=== PATIENT | female | born 1970 | race Caucasian/White ===

== ENCOUNTER → 2018-01-09 07:51 | Outpatient (CLI) | payer OTHER, SELFPAY ==
[2018-01-18 12:06] LABS: HPV Reflexed? NOT INDICATED
== END ==
PROVIDERS: Family Provider Internal Medicine; PCP Internal Medicine; Visit Provider Obstetrics & Gynecology
DX: Z12.4 Encounter for screening for malignant neoplasm of cervix (principal)
CPT/HCPCS: 88175; G0145

== ENCOUNTER → 2018-01-28 11:04 | Outpatient (CLI) | payer OTHER, SELFPAY ==
--- NOTE | 2018-01-28 11:07 | BI_ITS ---
MAMMOGRAPHY - BILATERAL SCREENING REASON FOR EXAM: Female, 48 years old. Routine annual screening examination. PERTINENT HISTORY: Non-contributory. TECHNIQUE: Digital bilateral breast roldan (3D mammographic acquisition) in the CC and MLO projections. 2-D mediolateral oblique (MLO) and craniocaudad (CC) views of both breasts were obtained. CAD: Full Field Digital Mammography with Computer Added Detection was performed. COMPARISON: Comparison is made with prior examination dated December 22, 2016 and December 22, 2015. FINDINGS: Breast Composition: There are scattered areas of fibroglandular density. There are no dominant masses or suspicious calcifications. Stable appearance of the bilateral axillary lymph nodes. No other significant abnormalities are identified. There has been no significant change since the prior study. BI/SCREENING MAMM (CAD), BILAT IMPRESSION: Stable bilateral screening mammogram. Yearly follow-up mammogram recommended. (A) ASSESSMENT CATEGORY: BIRADS Category 2: Benign. A letter regarding these results will be sent to the patient by the facility within 30 days. Approximately 10% of breast cancers are not detected by mammography. A normal mammogram should not delay biopsy of a clinically suspicious abnormality. [id number] Electronically Signed: Mark Vidal MD at 14:22 EDT Tel [phone], Service support ,
== END ==
PROVIDERS: Family Provider Internal Medicine; PCP Internal Medicine; Visit Provider Obstetrics & Gynecology
DX: Z12.31 Encounter for screening mammogram for malignant neoplasm of breast (principal)
CPT/HCPCS: 77063; 77067

== ENCOUNTER → 2019-02-19 16:28 | Outpatient (CLI) | payer OTHER, SELFPAY ==
[2018-12-11 15:11] VITALS: BMI 34.4
--- NOTE | 2019-02-19 16:30 | BI_ITS ---
MAMMOGRAPHY - BILATERAL SCREENING REASON FOR EXAM: Female, 49 years old. Routine annual screening examination. PERTINENT HISTORY: Non-contributory. TECHNIQUE: Digital bilateral breast randall (3D mammographic acquisition) in the CC and MLO projections. 2-D mediolateral oblique (MLO) and craniocaudad (CC) views of both breasts were obtained. CAD: Full Field Digital Mammography with Computer Added Detection was performed. COMPARISON: Comparison is made with prior study dated January 28, 2018 and December 22, 2016. FINDINGS: Breast Composition: There are scattered areas of fibroglandular density. There are no dominant masses or suspicious calcifications. Stable appearance of the bilateral benign-appearing axillary lymph nodes. No other significant abnormalities are identified. There has been no significant change since the prior study. BI/SCREEN MAMM (CAD) W/RANADLL BILAT IMPRESSION: Stable bilateral screening mammogram. Yearly follow-up mammogram recommended. (A) ASSESSMENT CATEGORY: BIRADS Category 2: Benign. A letter regarding these results will be sent to the patient by the facility within 30 days. Approximately 10% of breast cancers are not detected by mammography. A normal mammogram should not delay biopsy of a clinically suspicious abnormality. [id number] Electronically Signed: Mark Vidal, at 8:48 EDT , Service support ,
== END ==
PROVIDERS: Family Provider Internal Medicine; PCP Internal Medicine; Referring Provider Obstetrics & Gynecology; Visit Provider Obstetrics & Gynecology
DX: Z12.31 Encounter for screening mammogram for malignant neoplasm of breast (principal)
CPT/HCPCS: 77063; 77067

== ENCOUNTER → 2019-08-13 14:59 | Outpatient (CLI) | payer OTHER, SELFPAY ==
[2018-12-11 15:11] VITALS: BMI 34.4
--- NOTE | 2019-08-13 15:05 | RAD_ITS ---
STUDY: X-RAY - RIGHT HAND REASON FOR EXAM: Female, 49 years old. BILATERAL HAND SWELLING AND PAIN, SWELLING PRIMARILY AROUND THE PIP JOINTS TECHNIQUE: 3 view(s) of the hand. COMPARISON: None. FINDINGS: Normal radiocarpal articulation. Normal distal radioulnar joint. Normal visualized carpal bones. Normal carpal articulations Normal carpometacarpal articulation of the thumb. Normal second through fifth carpometacarpal joints. Normal metacarpi. Normal metacarpophalangeal joint of the thumb. Normal interphalangeal joint of the thumb. Normal proximal and distal phalanges of the thumb. Normal metacarpophalangeal joints of the second through fifth fingers. Normal proximal and distal interphalangeal joints of the second through fifth fingers. Normal phalanges of the second through fifth fingers. The soft tissue structures are unremarkable. RAD/Hand Min 3 Views IMPRESSION: Normal x-ray examination of the hand. Electronically Signed: Kandi Christiansen MD at 23:58 EST Tel , Service support ,
--- NOTE | 2019-08-13 15:06 | RAD_ITS ---
STUDY: X-RAY - LEFT HAND REASON FOR EXAM: Female, 49 years old. BILATERAL HAND SWELLING AND PAIN, SWELLING PRIMARILY AROUND THE PIP JOINTS TECHNIQUE: 3 view(s) of the hand. COMPARISON: None. FINDINGS: Normal radiocarpal articulation. Normal distal radioulnar joint. Normal visualized carpal bones. Normal carpal articulations Normal carpometacarpal articulation of the thumb. Normal second through fifth carpometacarpal joints. Normal metacarpi. Normal metacarpophalangeal joint of the thumb. Normal interphalangeal joint of the thumb. Normal proximal and distal phalanges of the thumb. Normal metacarpophalangeal joints of the second through fifth fingers. Normal proximal and distal interphalangeal joints of the second through fifth fingers. Normal phalanges of the second through fifth fingers. The soft tissue structures are unremarkable. RAD/Hand Min 3 Views IMPRESSION: Normal x-ray examination of the hand. Electronically Signed: Kandi Christiansen MD at 23:57 EST Tel , Service support ,
== END ==
PROVIDERS: PCP Internal Medicine; Referring Provider Internal Medicine; Visit Provider Internal Medicine
DX: M79.641 Pain in right hand (principal); M79.642 Pain in left hand
CPT/HCPCS: 73130

== ENCOUNTER → 2020-02-04 | Outpatient (CLI) | payer OTHER, SELFPAY ==
[2018-12-11 15:11] VITALS: BMI 34.4
[2020-02-11 16:57] LABS: HPV Reflexed? NOT INDICATED
== END | disposition home or self-care (01) ==
LOC: LABSPEC 13:50
PROVIDERS: PCP Internal Medicine; Visit Provider Obstetrics & Gynecology
DX: Z12.4 Encounter for screening for malignant neoplasm of cervix (principal)
CPT/HCPCS: 88175; G0145

== ENCOUNTER → 2020-03-01 | Outpatient (CLI) | payer OTHER, SELFPAY ==
[2018-12-11 15:11] VITALS: BMI 34.4
--- NOTE | 2020-03-01 12:16 | BI_ITS ---
MAMMOGRAPHY - BILATERAL SCREENING 3-D TOMOSYNTHESIS REASON FOR EXAM: Female, 50 years old. Routine screening PERTINENT HISTORY: NO FM HX , GAIN 10#. TECHNIQUE: 2-D mammograms and 3-D Tomosynthesis of the breast (s) were performed. CAD was performed. COMPARISON: 02/19/2019 FINDINGS: The breast composition is composed of scattered fibroglandular density. Scattered benign calcifications are seen. No dense spiculated masses or suspicious microcalcifications are identified. No architectural distortion is identified. There is no skin thickening or retraction. There has been no significant change since the prior study. BI/SCREEN MAMM (CAD) W/RANDALL BILAT IMPRESSION: No mammographic signs of malignancy. Routine yearly mammograms recommended. ASSESSMENT CATEGORY: BIRADS Category 1: Negative. A letter regarding these results will be sent to the patient by the facility within 30 days. FOLLOW UP RECOMMENDATION: Yearly follow up mammogram recommended. (A) Approximately 10% of breast cancers are not detected by mammography. A normal mammogram should not delay biopsy of a clinically suspicious abnormality. Electronically Signed: Chad Zheng MD at 13:32 EDT , Service support ,
== END | disposition home or self-care (01) ==
LOC: OPBI 12:15
PROVIDERS: PCP Internal Medicine; Referring Provider Obstetrics & Gynecology; Visit Provider Obstetrics & Gynecology
DX: Z12.31 Encounter for screening mammogram for malignant neoplasm of breast (principal)
CPT/HCPCS: 77063; 77067

== ENCOUNTER → 2020-11-09 10:46 | Outpatient (CLI) | payer OTHER, SELFPAY ==
[2018-12-11 15:11] VITALS: BMI 34.4
--- NOTE | 2020-11-09 10:55 | ECHOD_ITS ---
Reason For Study: Bicuspid AV Procedure This was a 2D Doppler, Color Flow transthoracic echocardiogram. The exam was of adequate technical quality. Exam performed in department. Left Ventricle Normal LV size. Left ventricular systolic function is normal. The estimated ejection fraction is 65 %. Diastolic function is indeterminate. No regional wall motion abnormalities noted. Right Ventricle Normal RV size. Normal systolic function. Atria Normal left atrium. Normal right atrium. No doppler evidence for ASD. Mitral Valve There is no mitral annular calcification. Mild diffuse mitral valve thickening. Trivial mitral valve insufficiency. Tricuspid Valve Normal tricuspid valve. Mild tricuspid valve insufficiency. Right ventricular systolic pressure estimated to be 20 mmHg. Aortic Valve Bicuspid aortic valve. Moderate focal aortic valve calcification. Mild aortic stenosis. Pulmonic Valve The pulmonic valve is not well visualized. Trivial pulmonic valve insufficiency. Great Vessels Normal sized aortic root. Pericardium/Pleural No pericardial effusion. MMode/2D Measurements & Calculations LVIDd: 3.9 cm IVSd: 1.0 cm LVOT diam: 2.0 cm LVIDs: 2.4 cm LVPWd: 0.94 cm LVOT area: 3.1 cm2 RVDd: 2.9 cm FS: 39.5 % Ao root diam: 3.5 cm LAV(MOD-bp): 33.8 ml LVAd ap4: 26.8 cm2 LAV(MOD-bp) Indexed: 17.6 ml/m2 LVLd ap4: 8.0 cm LAV(MOD-sp2): 36.8 ml EDV(MOD-sp4): 73.0 ml LAV(MOD-sp4): 30.9 ml EDV(sp4-el): 76.3 ml LVAs ap4: 14.8 cm2 LVLs ap4: 6.6 cm ESV(MOD-sp4): 29.3 ml ESV(sp4-el): 28.3 ml EF(MOD-sp4): 59.9 % EF(sp4-el): 62.9 % LVAd ap2: 23.7 cm2 SV(MOD-sp4): 43.7 ml SV(MOD-sp2): 38.7 ml LVLd ap2: 7.0 cm EDV(MOD-sp2): 67.1 ml EDV(sp2-el): 68.2 ml LVAs ap2: 14.5 cm2 LVLs ap2: 6.3 cm ESV(MOD-sp2): 28.5 ml ESV(sp2-el): 28.6 ml EF(MOD-sp2): 57.6 % SV(sp4-el): 48.0 ml LA dimension(2D): 3.4 cm LA A4 area: 13.8 cm2 RA A4 area: 8.9 cm2 Doppler Measurements & Calculations MV E max juan: 75.6 cm/sec Lat Peak E' Juan: 7.0 cm/sec Med Peak E' Juan: 4.6 cm/sec MV A max juan: 97.1 cm/sec E/E' lat: 10.8 E/E' med: 16.5 MV E/A: 0.78 Ao V2 max: 213.8 cm/sec LV V1 max: 102.2 cm/sec SV(LVOT): 69.0 ml Ao max P.3 mmHg LV V1 max P.2 mmHg Ao V2 mean: 148.8 cm/sec LV V1 mean P.3 mmHg Ao mean P.9 mmHg LV V1 mean: 71.9 cm/sec Ao V2 VTI: 43.4 cm LV V1 VTI: 22.4 cm RITESH(I,D): 1.6 cm2 RITESH(V,D): 1.5 cm2 PA V2 max: 81.8 cm/sec TR max juan: 206.9 cm/sec TR max P.2 mmHg ECHO/Echo Complete Interpretation Summary Left ventricular systolic function is normal. The estimated ejection fraction is 65 %. Mild diffuse mitral valve thickening. Trivial mitral valve insufficiency. Mild tricuspid valve insufficiency. Bicuspid aortic valve. Mild aortic stenosis. Trivial pulmonic valve insufficiency. Right ventricular systolic pressure estimated to be 20 mmHg. Diastolic function is indeterminate. Ordering Physician: Ant Camp Referring Physician: Jessica Sher M.D. Performed By: Lyndsay Andrews RDCS
== END ==
PROVIDERS: Family Provider Internal Medicine; PCP Internal Medicine; Referring Provider Internal Medicine Cardiovascular Disease; Visit Provider Internal Medicine Cardiovascular Disease
DX: Q23.1 Congenital insufficiency of aortic valve (principal)
CPT/HCPCS: 93306

== ENCOUNTER → 2021-04-04 12:28 | Outpatient (CLI) | payer OTHER, SELFPAY ==
--- NOTE | 2021-04-04 12:31 | BI_ITS ---
MAMMOGRAPHY - BILATERAL SCREENING REASON FOR EXAM: Female, 51 years old. Routine annual screening examination. PERTINENT HISTORY: Non-contributory. TECHNIQUE: Digital bilateral breast randall (3D mammographic acquisition) in the CC and MLO projections. 2-D mediolateral oblique (MLO) and craniocaudad (CC) views of both breasts were obtained. CAD: Full Field Digital Mammography with Computer Added Detection was performed. COMPARISON: Comparison is made with prior study dated 03/01/2020 and 02/19/2019. FINDINGS: Breast Composition: There are scattered areas of fibroglandular density. There are no dominant masses or suspicious calcifications. No other significant abnormalities are identified. There has been no significant change since the prior study. BI/SCRN MAMM (CAD)W/RANDALL BILAT IMPRESSION: Stable bilateral screening mammogram. Yearly follow-up mammogram recommended. (A) ASSESSMENT CATEGORY: BIRADS Category 1: Negative. A letter regarding these results will be sent to the patient by the facility within 30 days. Approximately 10% of breast cancers are not detected by mammography. A normal mammogram should not delay biopsy of a clinically suspicious abnormality. [id number] Electronically Signed: Mark Vidal MD at 13:29 EDT , Service support ,
== END ==
PROVIDERS: PCP Internal Medicine; Referring Provider Obstetrics & Gynecology; Visit Provider Obstetrics & Gynecology
DX: Z12.31 Encounter for screening mammogram for malignant neoplasm of breast (principal)
CPT/HCPCS: 77063; 77067

== ENCOUNTER 2021-07-23 10:48 | Outpatient (CLI) | payer OTHER, SELFPAY ==
[2021-07-23 10:55] VITALS: BP 145/91; PULSE 94; RESP 16; TEMP 36.3; O2SAT 99; BMI 36.9
[2021-07-23] MEDS: 0.9% Saline Lock 10 ML Syringe IV (11:11)
[2021-07-23 11:33] VITALS: BP 121/83; PULSE 70; RESP 16; TEMP 36.5; O2SAT 99
[2021-07-23 12:41] VITALS: BP 123/87; PULSE 71; RESP 16; TEMP 37.1; O2SAT 98
== END 2021-07-23 23:59 | disposition home or self-care (01) ==
LOC: MS3OUT 10:49 → MS3 10:49
PROVIDERS: PCP Internal Medicine; Referring Provider Nurse Practitioner Acute Care; Visit Provider Nurse Practitioner Acute Care
DX: U07.1 COVID-19 (principal)
CPT/HCPCS: J7050; M0243; A4216; Q0244

== ENCOUNTER → 2022-04-20 | Outpatient (CLI) | payer OTHER, SELFPAY ==
[2022-04-28 19:07] LABS: Clam <0.10 kU/L (Class 0); Codfish <0.10 kU/L (Class 0); Corn <0.10 kU/L (Class 0); Egg, White 0.19 kU/L (Class 0/I); Milk (Cow) <0.10 kU/L (Class 0); Peanut <0.10 kU/L (Class 0); SCALLOP <0.10 kU/L (Class 0); Shrimp <0.10 kU/L (Class 0); Soybean <0.10 kU/L (Class 0); Walnut, (Food) <0.10 kU/L (Class 0); Wheat <0.10 kU/L (Class 0)
[2022-04-29 11:45] LABS: SESAME SEED <0.10 kU/L (Class 0)
== END | disposition home or self-care (01) ==
LOC: LAB 15:54
PROVIDERS: PCP Internal Medicine; Visit Provider Otolaryngology
DX: T78.40XA Allergy, unspecified, initial encounter (principal)
CPT/HCPCS: 36415; 86003

== ENCOUNTER → 2022-05-23 | Outpatient (CLI) | payer OTHER, SELFPAY ==
--- NOTE | 2022-05-23 15:19 | BI_ITS ---
MAMMOGRAPHY - BILATERAL SCREENING REASON FOR EXAM: Female, 52 years old. Routine annual screening examination. PERTINENT HISTORY: Non-contributory. TECHNIQUE: Digital bilateral breast randall (3D mammographic acquisition) in the CC and MLO projections. 2-D mediolateral oblique (MLO) and craniocaudad (CC) views of both breasts were obtained. CAD: Full Field Digital Mammography with Computer Added Detection was performed. COMPARISON: Comparison is made with prior study dated 04/04/2021 and 03/01/2020. FINDINGS: Breast Composition: There are scattered areas of fibroglandular density. There are no dominant masses or suspicious calcifications. Stable small benign-appearing bilateral axillary lymph nodes. No other significant abnormalities are identified. There has been no significant change since the prior study. BI/SCRN MAMM (CAD)W/RANDALL BILAT IMPRESSION: Stable bilateral screening mammogram. Yearly follow-up mammogram recommended. (A) ASSESSMENT CATEGORY: BIRADS Category 2: Benign. A letter regarding these results will be sent to the patient by the facility within 30 days. Approximately 10% of breast cancers are not detected by mammography. A normal mammogram should not delay biopsy of a clinically suspicious abnormality. [id number] Electronically Signed: Mark Vidal MD at 8:43 EST ,
== END | disposition home or self-care (01) ==
LOC: OPBI 15:18
PROVIDERS: PCP Internal Medicine; Referring Provider Student in an Organized Health Care Education/Training Program; Visit Provider Student in an Organized Health Care Education/Training Program
DX: Z12.31 Encounter for screening mammogram for malignant neoplasm of breast (principal)
CPT/HCPCS: 77063; 77067

== ENCOUNTER → 2022-06-19 | Outpatient (CLI) | payer OTHER, SELFPAY ==
--- NOTE | 2022-06-19 16:21 | RAD_ITS ---
STUDY: X-RAY - RIGHT KNEE REASON FOR EXAM: Female, 52 years old. Right knee pain for several weeks TECHNIQUE: 3 view(s) of the knee. COMPARISON: None. FINDINGS: Normal visualized distal femur. Irregularity on the posterior aspect of the tibial epiphysis. Normal proximal tibiofibular articulation. Normal medial femorotibial compartment. Normal lateral femorotibial compartment. Normal patellofemoral articulation. There is a soft tissue prominence in the suprapatellar region suggesting a small volume joint effusion. The soft tissue structures are unremarkable. RAD/Knee 3 Views IMPRESSION: Posterior tibial epiphysis regularity is suspicious for avulsion injury. There may be a tiny suprapatellar knee joint effusion. Electronically Signed: Ant Dawson MD at 16:37 EST ,
== END | disposition home or self-care (01) ==
LOC: MTRAD 16:20
PROVIDERS: PCP Internal Medicine; Referring Provider Physician Assistant; Visit Provider Physician Assistant
DX: M25.561 Pain in right knee (principal)
CPT/HCPCS: 73562

== ENCOUNTER → 2022-07-14 | Outpatient (CLI) | payer OTHER, SELFPAY ==
--- NOTE | 2022-07-14 16:45 | MRI_ITS ---
EXAM: MR RIGHT LOWER EXTREMITY WITHOUT INTRAVENOUS CONTRAST, KNEE CLINICAL INDICATION: pain, rule out MM tear TECHNIQUE: Multiplanar and multisequence MR images of the right knee without intravenous contrast. This report was created using thePlatform report Fontacto technology. COMPARISON: X-ray 06/19/2022. FINDINGS: BONES/JOINTS: Trace marrow edema in the anteromedial femur consistent with early degenerative changes. No fracture. No synovial hypertrophy. No intra-articular body. EXTENSOR MECHANISM: Unremarkable. MEDIAL MENISCUS: Unremarkable. LATERAL MENISCUS: Unremarkable. MEDIAL CAPSULE/SUPPORTING STRUCTURES: Unremarkable. Intact. LATERAL CAPSULE/SUPPORTING STRUCTURES: Unremarkable, intact. ANTERIOR CRUCIATE LIGAMENT: Unremarkable. Intact. POSTERIOR CRUCIATE LIGAMENT: Unremarkable. Intact. MUSCLES: Unremarkable. Intact. CARTILAGE: Unremarkable. Intact. FLUID: Small joint effusion. OTHER SOFT TISSUES: : Septated cystic lesion posterior to the lateral tibial plateau and joint line, associated with the popliteus muscle and tendon, and most consistent with ganglion cyst. MRI/Lower Ext Joint Only (Routine) IMPRESSION: 1. Trace joint effusion. 2. Posterolateral ganglion cyst. Electronically Signed: Kandi Christiansen MD at 16:43 EST Reading Location ID and State: [id number] / Tel , Service support ,
== END | disposition home or self-care (01) ==
PROVIDERS: PCP Internal Medicine; Visit Provider Orthopaedic Surgery Sports Medicine
DX: M23.91 Unspecified internal derangement of right knee (principal)
CPT/HCPCS: 73721

== ENCOUNTER 2022-08-23 15:00 | Outpatient (RCR) | payer OTHER, SELFPAY ==
--- NOTE | 2022-07-27 16:06 | HP.PTEVAL_ITS ---
Patient's Visit Information AWILDA ALVAREZ is a 52 year old F referred to Physical Therapy by Dr. Arslan Aguirre MD with a diagnosis of Pain in R knee.. Date of Evaluation: 07/27/22 Physical Therapist: Woo Posadas DPT, OCS, CSCS - Visit Plan Frequency: 2x /Week Duration: 4-6 Weeks Plan: 2x/week for 4-6 week for... 1. rollout and stretch quads HS and itb, progress HS adn itb to HEP. 2. ensure full ROM of R knee flexion, PROM and mobs as needed. 3. Progress NWB to WB strengtha dn resistance ex for core, hip and knee...progress function and confidence on steps turning, pivotting to tolerance. - Subjective R knee pain but I have a high pain tolerance. Started hurting prior to . It was glitching. Heavy boots did not help. Glitch means freeze. Kicked forward suddenly and it popped and has hurt ever since. Pain is gotten better a little bit. Was limping before [place] and slow walking. Pain is comfortable at rest 0, and aggravated immediately suddenly with pivotting, or trip suddenly gets up to 7. Transiently. Sleep is interrupted with achiness. has to focus to roll in bed. Had x ray at [facility] and sent to Dr. Iglesias. Mariya is anterior and sometimes posterio medial. Walking a long distance can tighten her up. Has a compression sock which she uses and knee sleeve whcih helps. Chiropractor for back and knee. Wants to dance at son's wedding in September, wants to walk normal without worry at grocery store. Employed as lunch counter manager, on my feet for hour shifts. 7+ hours 4 days per week. No regualr exercises. Hobbies: walking but not with this weather. Basic ADLs are getting done, avoids vaccuum. steps at home are not currently a problem but has to be careful. - Pain R knee pain Pain Intensity (Out of 10): 0 Pain Intensity Range: 0, 7 - Objective Walks normal without gait deviations but hesitant to move quickly. Steps hesitant but no pain and reciprocal, trasnfers bed adn chair easily. R knee 0- 113 AROM with tightness at end range but no pain. 0-120 L knee. Tender medial joint line slightly and posterior joint line R knee. hip and ankle AROM WFL B without pain. HS and quad R mod tight vs L. reflexes 2/3 patella and achilles. Sensation LE WNL to gross light touch. strength R knee extension adn flexion 4- and L 4. ankle strength 4+ B. Hip strength 3+ B abd and extension, 4 flexion but has rotation at opposite hip in sitting. weakness apparent in core with trasnfers. - bounce home, - patellar grind, - ant drawer, - post sag, - pivot shift. Only mild swelling apparent in R vs L. - Balance/Special Test Scores Functional Gait Assessment Score: 30 % Disability: 0 Lower Extremity Functional Score: 50 - Goals Goal 1:: Full aROM R knee without tightness. Goal Time Frame: 2-4 Weeks Goal 2:: Pain in R knee 0-1/10 and 90% better Goal Time Frame: 2-4 Weeks Goal 3:: I appropriate management of condition with strength, ROm, stretch Goal Time Frame: 4-6 Weeks Goal 4:: LEFS 65 Goal 5:: Ready to dance at son's wedding Goal Time Frame: 4-6 Weeks - Rehabilitation Potential Physical Therapy Diagnosis: Pain R knee unknown etiology. Rehabilitation Potential: Good - Anticipated Interventions Patient/Client Instruction: Educate patient on: Condition, Plan of Care For the Purpose of:: To decrease pain, To increase ROM, To improve muscle performance and motor function, To increase tolerance to activity/condition/position Therapeutic Exercise to Include: Strength training, Flexibilty training, Passive ROM, Active ROM For the Purpose of:: To decrease pain, To increase ROM, To improve muscle performance and motor function, To increase tolerance to activit y/condition/position Manual Therapy Techniques to Include: Mobilization, Soft tissue mobilization For the Purpose of:: To decrease pain, To increase ROM, To improve nutrient delivery to tissue, To improve muscle performance and motor function Cryotherapy (ice pack, ice massage): Yes For the Purpose of:: To decrease pain, To decrease swelling/inflammation Thank you for the opportunity to evaluate your patient. For Medicare and Medicare HMO plans, please review the plan of care and approve it. It will need to be FAXED BACK to us at [phone] for Medicare purposes. For Medicare only, by signing this I certify the plan of care. Please let me know if there are questions or concerns regarding this plan of care. Physician Signature: Date:
--- NOTE | 2022-08-23 15:45 | HP.PTDCSUM ---
It has been my pleasure to treat AWILDA ALVAREZ referred by Dr. Arslan Aguirre MD, with the diagnosis of Pain in R knee. for a total of 7 visit(s). Discharge Date: 08/23/22 Please see the following information for a summary of their discharge status. Subjective: Knee is doing really good. I am not limping. Doesn't have to change parking space. Doing exercises at home regularly. Pain this week has been up to 1/10 if any. Activities are pretty normal. No f/u scheduled. Feels like she can dance at her son's wedding. Stands 7-8 hrs per day at work and tolerating well. R knee pain Pain Intensity (Out of 10): 0 % Improvement: 90 Objective/Function: Full aROM L knee without pain todya, minor tightness. Walks normal without hesitation. Steps reciprocal without rail easily. Moving around normal and without concerns. Goal 1:: Full aROM R knee without tightness. Goal Progress: Goal Met Goal 2:: Pain in R knee 0-1/10 and 90% better Goal Progress: Goal Met Goal 3:: I appropriate management of condition with strength, ROm, stretch Goal Progress: Goal Met Goal 4:: LEFS 65 Goal Progress: Progressing Goal 5:: Ready to dance at son's wedding Goal Progress: Goal Met Plan: d/c If there are questions or concerns regarding this patient's physical therapy, please feel free to call me at [phone]. Thank you for the referral of this patient. Sincerely, Woo Posadas, DPT, OCS, CSCS Balance/Gait/Functional tests - Balance/Special Test Scores Functional Gait Assessment Score: 30 % Disability: 0 Lower Extremity Functional Score: 55
== END 2022-08-23 15:52 | disposition home or self-care (01) ==
LOC: PT 15:00
PROVIDERS: PCP Internal Medicine; Referring Provider Orthopaedic Surgery Sports Medicine; Visit Provider Orthopaedic Surgery Sports Medicine
DX: M25.561 Pain in right knee (principal)
CPT/HCPCS: 97110; 97140; 97161; 97164

== ENCOUNTER → 2023-01-01 | Outpatient (CLI) | payer OTHER, SELFPAY ==
--- NOTE | 2023-01-01 17:22 | RAD_ITS ---
EXAM: XR RIGHT HIP WITH PELVIS WHEN PERFORMED, 2 OR 3 VIEWS CLINICAL INDICATION: PAIN TECHNIQUE: Two or three views of the right hip with pelvis when performed. COMPARISON: No relevant prior studies available. FINDINGS: BONES/JOINTS: Unremarkable. No displaced fracture. No destructive or sclerotic lesions. Note that overlapping bowel shadows may however obscure fine detail. Sacroiliac joint is unremarkable. No widening of the pubic symphysis. The articular structures are unremarkable. SOFT TISSUES: Unremarkable. No soft tissue swelling or gas. RAD/HIP, UNI W/ Pelvis 2-3 Views IMPRESSION: No evidence of displaced pelvic or hip fracture. Electronically Signed: Mikey Mallory MD at 23:57 EDT ,
== END | disposition home or self-care (01) ==
LOC: MTRAD 17:21
PROVIDERS: PCP Internal Medicine; Referring Provider Internal Medicine; Visit Provider Internal Medicine
DX: M25.551 Pain in right hip (principal)
CPT/HCPCS: 73502

== ENCOUNTER → 2023-01-29 | Outpatient (CLI) | payer OTHER, SELFPAY ==
[2023-01-31 14:09] LABS: Endomysial Antibody IgA Negative (Negative); Immunoglobulin A 256 mg/dL (87-352); t-Transglutaminase IgA <2 U/mL (0-3)
== END | disposition home or self-care (01) ==
LOC: MTLAB 16:47
PROVIDERS: PCP Internal Medicine; Referring Provider Internal Medicine; Visit Provider Internal Medicine
DX: R19.7 Diarrhea, unspecified (principal)
CPT/HCPCS: 36415; 82784; 83516; 86255

== ENCOUNTER 2023-02-02 10:30 | Outpatient (CLI) | payer OTHER, SELFPAY | END 2023-02-02 23:59 | disposition home or self-care (01) | LOC: MTLAB 10:31 | PROVIDERS: PCP Internal Medicine; Referring Provider Internal Medicine; Visit Provider Internal Medicine | DX: R19.7 Diarrhea, unspecified (principal) | CPT/HCPCS: 82274; 82784; 83516; 83630; 86255; 87177; 87209; 87493; 87506 ==

== ENCOUNTER → 2023-03-23 | Outpatient (CLI) | payer OTHER, SELFPAY ==
[2023-03-27 17:07] LABS: HPV APTIMA, High Risk Negative (Negative)
== END | disposition home or self-care (01) ==
LOC: WOBLAB 11:22
PROVIDERS: PCP Internal Medicine; Visit Provider Student in an Organized Health Care Education/Training Program
DX: Z12.4 Encounter for screening for malignant neoplasm of cervix (principal)
CPT/HCPCS: 87624; 88175; G0145

== ENCOUNTER → 2023-05-07 | Outpatient (CLI) | payer OTHER, SELFPAY ==
[2023-05-07 18:25] LABS: Hemoglobin A1c 5.4 % (3.8-5.6)
== END | disposition home or self-care (01) ==
LOC: MTLAB 16:59
PROVIDERS: PCP Internal Medicine; Referring Provider Internal Medicine; Visit Provider Internal Medicine
DX: R73.09 Other abnormal glucose (principal)
CPT/HCPCS: 36415; 83036

== ENCOUNTER → 2023-05-30 | Outpatient (CLI) | payer OTHER, SELFPAY ==
--- NOTE | 2023-05-30 15:19 | BI_ITS ---
MAMMOGRAPHY - BILATERAL SCREENING REASON FOR EXAM: Female, 53 years old. Routine annual screening examination. PERTINENT HISTORY: Non-contributory. TECHNIQUE: Digital bilateral breast randall (3D mammographic acquisition) in the CC and MLO projections. 2-D mediolateral oblique (MLO) and craniocaudad (CC) views of both breasts were obtained. CAD: Full Field Digital Mammography with Computer Added Detection was performed. COMPARISON: Comparison is made with prior study May 23, 2022 and April 04, 2021. FINDINGS: Breast Composition: There are scattered areas of fibroglandular density. There are no dominant masses or suspicious calcifications. Stable small benign-appearing bilateral axillary lymph nodes. No other significant abnormalities are identified. There has been no significant change since the prior study. BI/SCRN MAMM (CAD)W/RANDALL BILAT IMPRESSION: Stable bilateral screening mammogram. Yearly follow-up mammogram recommended. (A) ASSESSMENT CATEGORY: BIRADS Category 2: Benign. A letter regarding these results will be sent to the patient by the facility within 30 days. Approximately 10% of breast cancers are not detected by mammography. A normal mammogram should not delay biopsy of a clinically suspicious abnormality. [id number] Electronically Signed: Mark Vidal MD at 8:39 EST ,
== END | disposition home or self-care (01) ==
LOC: OPBI 15:18
PROVIDERS: PCP Internal Medicine; Referring Provider Internal Medicine; Visit Provider Internal Medicine
DX: Z12.31 Encounter for screening mammogram for malignant neoplasm of breast (principal)
CPT/HCPCS: 77063; 77067

== ENCOUNTER → 2023-12-24 | Outpatient (CLI) | payer OTHER, SELFPAY ==
--- NOTE | 2023-12-24 15:00 | ECHOD_ITS ---
Reason For Study: AORTIC STENOSIS- BAV Procedure This was a 2D Doppler, Color Flow transthoracic echocardiogram. Exam performed in department. Left Ventricle Normal LV size. Left ventricular systolic function is normal. The estimated ejection fraction is 65 %. Stage 1 diastolic dysfunction. No regional wall motion abnormalities noted. Right Ventricle Normal RV size. Normal systolic function. Atria Normal left atrium. Normal right atrium. Mitral Valve Normal mitral valve. Tricuspid Valve Normal tricuspid valve. Mild (1+) tricuspid valve insufficiency. Pulmonary artery systolic pressure is 20 mmHg. Aortic Valve Bicuspid aortic valve. Peak aortic valve gradient 24 mmHg. Mean aortic valve gradient 14 mmHg. Mild aortic stenosis. Pulmonic Valve Normal pulmonic valve. Great Vessels Normal aortic root. The pulmonary artery is normal size. Normal inferior vena cava. Pericardium/Pleural No pericardial effusion. MMode/2D Measurements & Calculations LVIDd: 3.8 cm IVSd: 1.2 cm LVOT diam: 2.0 cm LVIDs: 1.8 cm LVPWd: 0.96 cm LVOT area: 3.1 cm2 RVDd: 2.8 cm FS: 53.0 % Ao root diam: 3.3 cm LAV(MOD-bp): 24.2 ml LVAd ap4: 19.0 cm2 LAV(MOD-bp) Indexed: 12.7 ml/m2 LVLd ap4: 6.8 cm LAV(MOD-sp2): 15.7 ml EDV(MOD-sp4): 42.4 ml LAV(MOD-sp4): 31.4 ml EDV(sp4-el): 44.7 ml LVAs ap4: 8.2 cm2 LVLs ap4: 5.7 cm ESV(MOD-sp4): 10.4 ml ESV(sp4-el): 9.9 ml EF(MOD-sp4): 75.5 % EF(sp4-el): 77.8 % LVAd ap2: 18.0 cm2 SV(MOD-sp4): 32.0 ml SV(MOD-sp2): 26.2 ml LVLd ap2: 6.9 cm EDV(MOD-sp2): 39.0 ml EDV(sp2-el): 39.9 ml LVAs ap2: 9.2 cm2 LVLs ap2: 5.8 cm ESV(MOD-sp2): 12.8 ml ESV(sp2-el): 12.4 ml EF(MOD-sp2): 67.1 % SV(sp4-el): 34.8 ml LA dimension(2D): 3.8 cm LA A4 area: 14.7 cm2 RA A4 area: 8.2 cm2 TAPSE: 1.7 cm Time Measurements MV dec time: 0.12 sec Doppler Measurements & Calculations MV E max juan: 76.6 cm/sec Lat Peak E' Juan: 8.0 cm/sec Med Peak E' Juan: 6.8 cm/sec MV A max juan: 96.7 cm/sec E/E' lat: 9.6 E/E' med: 11.3 MV E/A: 0.79 Ao V2 max: 242.5 cm/sec LV V1 max: 92.5 cm/sec MV dec slope: 656.4 cm/sec2 Ao max P.5 mmHg LV V1 max P.4 mmHg Ao V2 mean: 179.2 cm/sec LV V1 mean P.1 mmHg Ao mean P.0 mmHg LV V1 mean: 70.5 cm/sec Ao V2 VTI: 49.9 cm LV V1 VTI: 20.5 cm AV (velocity ratio): 0.41 RITESH(I,D): 1.3 cm2 RITESH(V,D): 1.2 cm2 SV(LVOT): 63.2 ml PA V2 max: 86.4 cm/sec TR max juan: 205.4 cm/sec PA max PG (full): 1.0 mmHg TR max P.9 mmHg ECHO/Echo Complete Interpretation Summary Peak aortic valve gradient 24 mmHg. Normal LV size. Left ventricular systolic function is normal. The estimated ejection fraction is 65 %. Stage 1 diastolic dysfunction. Bicuspid aortic valve. Mild aortic stenosis. Ordering Physician: Naye Hernandez Referring Physician: Jessica Sher M.D. Performed By: Maria Luz Littlejohn RDCS
== END | disposition home or self-care (01) ==
LOC: CVS 14:56
PROVIDERS: PCP Internal Medicine; Referring Provider Nurse Practitioner Gerontology; Visit Provider Nurse Practitioner Gerontology
DX: I35.0 Nonrheumatic aortic (valve) stenosis (principal)
CPT/HCPCS: 93306

== ENCOUNTER → 2024-08-22 | Outpatient (CLI) | payer OTHER, SELFPAY ==
--- NOTE | 2024-08-22 12:35 | BI_ITS ---
PROCEDURE: SCRN MAMM (CAD)W/RANDALL BILAT REASON FOR EXAM: F, Age 54 y/o, no family history. Routine annual follow-up. TECHNIQUE: Bilateral screening digital breast tomosynthesis with 2D and 3D images. Computer aided detection. COMPARISON: Prior exam(s) dating back to May 30, 2023.. FINDINGS: There are scattered areas of fibroglandular density. Stable small benign- appearing bilateral axillary lymph nodes. No suspicious masses, areas of developing architectural distortion, or suspicious calcifications. BI/SCRN MAMM (CAD)W/RANDALL BILAT IMPRESSION: BI-RADS 2: BENIGN. RECOMMEND ANNUAL MAMMOGRAPHIC SCREENING. Follow-up code: Routine Follow-up The patient will be notified of the results by letter. Reading Location: [place] [id number]
== END | disposition home or self-care (01) ==
LOC: OPBI 12:34
PROVIDERS: PCP Internal Medicine; Referring Provider Internal Medicine; Visit Provider Internal Medicine
DX: Z12.31 Encounter for screening mammogram for malignant neoplasm of breast (principal)
CPT/HCPCS: 77063; 77067

== ENCOUNTER → 2024-08-27 | Outpatient (CLI) | payer OTHER, SELFPAY ==
[2024-09-01 05:06] LABS: Almond <0.10 kU/L (Class 0); Apple <0.10 kU/L (Class 0); Barley, Whole Grain <0.10 kU/L (Class 0); Beef <0.10 kU/L (Class 0); Carrot <0.10 kU/L (Class 0); Casein <0.10 kU/L (Class 0); Cashew <0.10 kU/L (Class 0); Celery <0.10 kU/L (Class 0); Cheddar Cheese <0.10 kU/L (Class 0); Chicken <0.10 kU/L (Class 0); Chocolate <0.10 kU/L (Class 0); Clam <0.10 kU/L (Class 0); Codfish <0.10 kU/L (Class 0); Corn <0.10 kU/L (Class 0); Crab <0.10 kU/L (Class 0); Egg, White 0.27 kU/L (Class 0/I); Egg, Whole 0.15 kU/L (Class 0/I); Egg, Yolk <0.10 kU/L (Class 0); Garlic <0.10 kU/L (Class 0); Gluten <0.10 kU/L (Class 0); Hazelnut/Filbert <0.10 kU/L (Class 0); Lactalbumin, Alpha <0.10 kU/L (Class 0); Lettuce <0.10 kU/L (Class 0); Lobster <0.10 kU/L (Class 0); Milk (Cow) <0.10 kU/L (Class 0); Oat <0.10 kU/L (Class 0); Onion <0.10 kU/L (Class 0); Orange <0.10 kU/L (Class 0); Pea <0.10 kU/L (Class 0); Peach <0.10 kU/L (Class 0); Peanut <0.10 kU/L (Class 0); Pecan <0.10 kU/L (Class 0); Pork <0.10 kU/L (Class 0); Potato, White <0.10 kU/L (Class 0); Rice <0.10 kU/L (Class 0); Rye <0.10 kU/L (Class 0); Salmon <0.10 kU/L (Class 0); Shrimp <0.10 kU/L (Class 0); Soybean <0.10 kU/L (Class 0); Strawberry <0.10 kU/L (Class 0); Tomato 0.15 kU/L (Class 0/I); Tuna <0.10 kU/L (Class 0); Turkey <0.10 kU/L (Class 0); Walnut, (Food) <0.10 kU/L (Class 0); Wheat <0.10 kU/L (Class 0); Yeast <0.10 kU/L (Class 0)
== END | disposition home or self-care (01) ==
PROVIDERS: Referring Provider Otolaryngology; Visit Provider Otolaryngology
DX: T78.40XA Allergy, unspecified, initial encounter (principal); X58.XXXA Exposure to other specified factors, initial encounter
CPT/HCPCS: 86003

== ENCOUNTER → 2024-11-27 | Outpatient (CLI) | payer OTHER, SELFPAY ==
[2024-11-27 12:33] LABS: Absolute Lymphocyte Count 2.02 X10^3/uL (0.83-4.51); Absolute Neutrophil Count 2.6 X10^3/uL (2.0-7.7); Basophil# 0.07 X10^3/uL; Basophil% 1.3 % (0-1); Eosinophil# 0.13 X10^3/uL; Eosinophils% 2.4 % (0-5); Hematocrit 40.9 % (37-47); Hemoglobin 13.5 g/dL (12.0-15.0); Lymphocyte # 2.02 X10^3/ul (0.83-4.51); Lymphocyte % 37.7 % (19-41); Mean Corpuscular Hgb 29.5 pg (27.0-32.0); Mean Corpuscular Volume 89.3 fL (81-99); Mean Platelet Vol. 9.8 fl (6.2-12.0); Monocyte# 0.49 X10^3/uL; Monocyte% 9.1 % (0-10); NRBC Flagged by Analyzer 0 % (0-5); Neutrophil # 2.64 X10^3/uL (2.7-7.7); Neutrophil % 49.3 % (47-70); Platelet Count 361 K/mm3 (150-450); RBC Distribution Width CV 13.1 % (11.6-14.6); RBC Distribution Width SD 43.1 fl (35.1-43.9); Red Blood Count 4.58 M/mm3 (4.2-5.4); White Blood Count 5.4 K/mm3 (4.4-11.0)
[2024-11-27 13:16] LABS: ALB/GLOB Ratio 1.4 RATIO (0.9-2.4); AST(SGOT) 25 U/L (<=31); Alanine Aminotransfer ALT/SGPT 31 U/L (<=34); Albumin, Serum 4.4 g/dL (3.5-5.0); Alkaline Phosphatase 71 U/L (35-104); Anion Gap 10 (5-15); BUN 14 mg/dL (4-19); BUN/Creat Ratio 17.9 RATIO (10-20); Calcium,Total 9.8 mg/dL (7.6-11.0); Chloride 103 mmol/L (98-108); Cholesterol 203 mg/dL (<=200); Creatinine, Serum 0.76 mg/dL (0.70-1.20); EST Glomerular Filtration Rate 93 (>60); Globulin 3.1 g/dL (2.2-4.2); Glucose 100 mg/dL (70-99); High Density Lipoprotein 52 mg/dL; Low Density Lipoprotein Calc. 125 mg/dL; Potassium 4.6 mmol/L (3.3-5.1); Protein, Total 7.5 g/dL (5.9-8.4); Sodium Level 139 mmol/L (133-145); Total Bilirubin 0.45 mg/dL (0.00-1.30); Triglycerides 133 mg/dL; Very Low Density Lipoprotein 27 mg/dL (5-40); Vitamin D,25 Hydroxy 65.6 ng/mL (30-100); cholesterol:hdl ratio screen 3.92
== END | disposition home or self-care (01) ==
LOC: BIMLAB 11:13
PROVIDERS: PCP Internal Medicine; Referring Provider Internal Medicine; Visit Provider Internal Medicine
DX: I35.0 Nonrheumatic aortic (valve) stenosis (principal); Q23.1 Congenital insufficiency of aortic valve; Z13.6 Encounter for screening for cardiovascular disorders; E55.9 Vitamin D deficiency, unspecified
CPT/HCPCS: 36415; 80053; 80061; 82306; 85025

== ENCOUNTER → 2024-12-11 | Outpatient (CLI) | payer OTHER, SELFPAY | END | disposition home or self-care (01) | PROVIDERS: PCP Internal Medicine; Referring Provider Internal Medicine; Visit Provider Internal Medicine | DX: R06.00 Dyspnea, unspecified (principal) | CPT/HCPCS: 94060; 94726; 94729 ==

== ENCOUNTER → 2025-01-28 | Outpatient (CLI) | payer OTHER, SELFPAY ==
--- NOTE | 2025-01-28 11:35 | STRESSREP ---
Stress Test Report Date: 01/28/2025 Procedure: Exercise tolerance test/imaging study Indications: Aortic valve abnormality Consent: Per the patient Procedure: The patient exercised on a Arnulfo protocol for 6 minutes and 16 seconds achieving a peak heart rate of 151 bpm (92% predicted maximal heart rate) with a peak blood pressure 132/82 mmHg and a peak MET capacity of 7.7 METs. The baseline ECG demonstrated sinus rhythm. The peak exercise ECG did not show any ischemic changes. There were no cardiac dysrhythmias pretest, during exercise, or recovery. The functional capacity was considered very good for age. There was no complaint of chest discomfort during exercise or recovery. The examination was discontinued secondary to target heart rate being achieved and dyspnea. The patient was injected with 13.1 mCi of technetium 99m Cardiolite and subsequently rest SPECT Cardiolite nuclear imaging was obtained in the horizontal long, vertical long, and short axis views. Post-exercise, the patient was injected with 42.2 mCi of technetium 99m Cardiolite and subsequently stress SPECT Cardiolite nuclear imaging was obtained in the horizontal long, vertical long, and short axis views. A gated Cardiolite study at peak stress was obtained. Rest and stress SPECT Cardiolite nuclear imaging status post realignment, normalization, and attenuation correction, demonstrates the appearance of relative uniform tracer uptake and myocardial perfusion appearing within normal limits. There is end systolic thickening and brightening. The gated Cardiolite study demonstrates myocardial thickening and inward wall motion. The reported LVEF is 89%. Impression: 1. Technically adequate (percent predicted maximal heart rate greater than 85%) exercise tolerance test 2. Peak exercise ECG with no diagnostic ischemic changes. Blunted blood pressure response to exercise 3. There were no cardiac dysrhythmias pretest, during exercise, or recovery 4. Rest and stress SPECT Cardiolite nuclear imaging demonstrate relative uniform tracer uptake and myocardial perfusion appearing within normal limits. 5. The gated Cardiolite study reports an LVEF of 89%. This note was generated with [email or web address] software. It may contain incorrect words, spelling, and punctuation that were not noted in checking the note before signing.
== END | disposition home or self-care (01) ==
PROVIDERS: PCP Internal Medicine; Referring Provider Nurse Practitioner Gerontology; Visit Provider Nurse Practitioner Gerontology
DX: R06.02 Shortness of breath (principal)
CPT/HCPCS: 78452; 93017; A9500; A4216

== ENCOUNTER → 2025-05-06 | Outpatient (CLI) | payer OTHER, SELFPAY ==
[2025-05-06 14:50] LABS: Follicle Stimulating Hormone 38.5 mIU/mL
[2025-05-11 17:08] LABS: Anti-Mullerian Hormone,Serum < 0.015 ng/mL (.)
== END | disposition home or self-care (01) ==
LOC: LAB 12:56
PROVIDERS: PCP Internal Medicine; Referring Provider Nurse Practitioner Family; Visit Provider Nurse Practitioner Family
DX: N95.0 Postmenopausal bleeding (principal)
CPT/HCPCS: 36415; 82670; 83001; 83516

== ENCOUNTER → 2025-05-11 | Outpatient (CLI) | payer OTHER, SELFPAY ==
--- NOTE | 2025-05-11 09:05 | US_ITS ---
PROCEDURE: PELVIC W/ TRANSVAGINAL 05/11/2025 REASON FOR EXAM: POST MENOPAUSAL BLEEDING It has been 1 year since the patient's last menstrual cycle. Estimated 1st day of last menstrual period was 03/16/2024. 3 para 2. TECHNIQUE: Procedure Code: [id number] Modality: US Procedure: PELVIC W/ TRANSVAGINAL COMPARISON: None FINDINGS: The exam is somewhat limited due to the bowel gas obscuring the pelvic structures. Measurements: Uterus: 8.5 x 6.0 x 5.6 cm with a volume of 151 mL Endometrial Thickness: 3 mm Right Ovary: 1.9 x 1.6 x 1.1 with a volume of 1.8 mL. Left Ovary: 2.2 x 1.7 x 1.5 with a volume of 2.9 mL. Uterus: The uterus is retroverted. There is a solid hypoechoic smoothly marginated mass in the posterior aspect of the myometrium measuring 12 x 12 x 7 mm. This is most compatible with a uterine fibroid there is a benign-appearing cyst identified in the fundal portion of the myometrium measuring 6 x 6 x 5 mm. There is another benign-appearing cyst seen in the fundal portion of the myometrium measuring 5 x 4 x 4 mm. There is no IUD. Endometrium: 3 mm. Endometrium is hyperechoic. Cervix: Within normal limits Right ovary: Size, contour, and echogenicity are within normal limits. There is blood flow to the ovary. There is a dominant follicle visualized. Left ovary: Size, contour, and echogenicity are within normal limits. There is blood flow to the ovary. There is a dominant follicle visualized. Other: Urinary bladder measures 8.2 x 7.5 x 4.2 cm. Urinary bladder volume is 138 mL. Bladder wall is smooth. The bladder wall is not abnormally thick. There are no masses seen in the urinary bladder. Cul-de-sac: There is no free fluid in the cul-de-sac. US/Pelvic w/ Transvaginal IMPRESSION: The uterine mass is most compatible with an uterine fibroid. The endometrium appears grossly unremarkable. If the patient's symptoms contin ue or worsen, endometrial biopsy or close clinical follow-up should be performed. Reading Location: [id number]
== END | disposition home or self-care (01) ==
PROVIDERS: PCP Internal Medicine; Referring Provider Nurse Practitioner Family; Visit Provider Nurse Practitioner Family
DX: N95.0 Postmenopausal bleeding (principal)
CPT/HCPCS: 76830; 76856

== ENCOUNTER → 2025-05-14 | Outpatient (CLI) | payer OTHER, SELFPAY ==
[2025-05-19 17:08] LABS: HPV APTIMA, High Risk Negative (Negative)
== END | disposition home or self-care (01) ==
LOC: LABSPEC 16:20
PROVIDERS: PCP Internal Medicine; Visit Provider Nurse Practitioner Family
DX: Z12.4 Encounter for screening for malignant neoplasm of cervix (principal)
CPT/HCPCS: 87624; 88175; G0145

== ENCOUNTER → 2025-05-28 | Outpatient (CLI) | payer OTHER, SELFPAY ==
--- NOTE | 2025-05-28 10:40 | EMB_PTH ---
PATIENT: AWILDA ALVAREZ LOC: [facility] U#:[id number] AGE/SX: 55/F ROOM: RE05/28/[address]: AMANDA Martin : 1970 BED: DIS: 05/28/2025 SPEC #: [id number] RECD: 05/28/25 12:23 STATUS: CAMILA MEAGAN #: [id number] VIPUL: 05/28/25 10:[address]: Concepción Haddad NP DEPT: SURGICAL PATHOLOGY RECD BY: Vance Jung Tissues: A - Endometrium, NOS Procedures: Surgery Specimen Level IV HEADER OPERATION: Endometrial biopsy PRE-OP DIAGNOSIS: Post menopausal bleeding TISSUE SUBMITTED: A- Endometrial tissue MICROSCOPIC DIAGNOSIS A. Endometrium, biopsy: - Strips of endocervical columnar epithelium, few pieces of atrophic endometrium, and a strip of squamous epithelium, benign MICROSCOPIC DESCRIPTION Slides are reviewed. GROSS DESCRIPTION A. Received in formalin labeled with the patient's name and date of . Designated as endometrial tissue is a 2.7 x 1.8 x 0.2 cm aggregate of mucoid material and flecks of apparent tissue. Entirely submitted in 1 cassette. Entirety of the specimen may not survive processing. AK 05/28/2025 CPT:07897
== END | disposition home or self-care (01) ==
PROVIDERS: Visit Provider Nurse Practitioner Women's Health
DX: N95.0 Postmenopausal bleeding (principal)
CPT/HCPCS: 88305